=== PATIENT | female | born 1995 | race American Indian/Alaskan Native ===

== ENCOUNTER 2017-10-05 13:05 | Emergency (ER) | payer SELFPAY ==
[2017-10-05 13:35] VITALS: TEMP 98.8
[2017-10-05 14:14] LABS: BASO # 0.03 K/mm3 (0.0-2.0); BASO % 0.3 % (0.0-3.0); EOS # 0.1 (0.0-0.7); GRAN % 65.9 % (50.0-68.0); HEMOGLOBIN 10.4 g/dL (12.0-16.0); LYMPH # 2.9 (1.2-3.4); LYMPH % 27.2 % (22.0-35.0); MEAN CELL VOLUME 76.7 fl (80.0-105.0); MEAN CORPUSCULAR HEMOGLOBIN 23.5 pg (25.0-35.0); MEAN CORPUSCULAR HGB CONC 30.7 g/dl (31.0-37.0); MEAN PLATELET VOLUME 9.2 fl (7.0-11.0); MONO # 0.6 (0.1-0.6); MONO % 5.6 % (1.0-6.0); RBC 4.42 10^6/uL (3.5-6.1); RED CELL DISTRIBUTION WIDTH 14.8 % (11.5-14.5); WHITE BLOOD COUNT 10.6 10^3/ul (4.5-11.0)
[2017-10-05 14:17] LABS: PH,URINE 7.5 (4.7-8.0); URINE BILIRUBIN NEGATIVE (NEGATIVE); URINE BLOOD NEGATIVE (NEGATIVE); URINE GLUCOSE (UA) NEGATIVE (NEGATIVE); URINE LEUKOCYTE ESTERASE NEGATIVE Leu/uL (NEGATIVE); URINE NITRATE NEGATIVE (NEGATIVE); URINE PROTEIN TRACE mg/dL (<30 mg/dL); URINE UROBILINOGEN 0.2 E.U./dL (<1 E.U./dL)
[2017-10-05 14:19] LABS: URINE APPEARANCE SL CLOUDY (CLEAR); URINE COLOR YELLOW (YELLOW)
[2017-10-05 14:22] LABS: HCG,QUALITATIVE URINE NEGATIVE (NEGATIVE)
[2017-10-05 14:24] LABS: ALB/GLOB RATIO 1.3 (1.1-1.8); ALT/SGPT 26 U/L (7-56); AST/SGOT 20 U/L (14-36); BLOOD UREA NITROGEN 11 mg/dL (7-21); CALCIUM 9.5 mg/dL (8.4-10.5); GFR AFRICAN-AMERICAN > 60; GFR NON-AFRICAN AMERICAN > 60
[2017-10-05 14:27] LABS: URINE RBC NEGATIVE /hpf (0-2)
--- NOTE | 2017-10-05 14:45 | ED PDOC ---
Arrival/HPI - General Chief Complaint: Abdominal Pain Time Seen by Provider: 10/05/17 13:32 - History of Present Illness Narrative History of Present Illness (Text): 21yo female with LMP 1 week ago, presents to ER today with complaints of 2 weeks of dysuria and right lower abdominal pain, present since 4 days ago. She states the pain worsens with specific movements. She denies any fever, vomiting , diarrhea or appetite changes. No other complaints. States dysuria is persistent but improved. Denies back pain. Denies fevers or chills. Denies abnormal vaginal bleeding or discharge. No rash. No change in appetite. Pain not worse with meals. She states that she has had this pain intermittently at same spot in past but it "usually goes away after Tylenol". States pain has been persistent for past several days. Time/Duration: > week (2 weeks dysuria), < week (4 days abdominal pain) Symptom Onset: Gradual Past Medical History - Provider Review Nursing Documentation Reviewed: Yes - Reproductive Menopause: No - Psychiatric Hx Substance Use: Yes - Anesthesia Hx Anesthesia: No Family/Social History - Physician Review Nursing Documentation Reviewed: Yes Family/Social History: No Known Family HX Smoking Status: Current Some Days Smoker Hx Alcohol Use: No Hx Substance Use: Yes Substance used: marijuana Allergies/Home Meds Allergies/Adverse Reactions: Allergies No Known Allergies Allergy (Verified 10/05/17 13:35) Review of Systems - Review of Systems Constitutional: Fatigue. absent: Fevers Eyes: absent: Vision Changes, Eye Pain Respiratory: absent: SOB Cardiovascular: absent: Chest Pain Gastrointestinal: Abdominal Pain. absent: Stool Changes, Diarrhea, Nausea, Vomiting, Appetite Changes, Hematochezia, Hematemesis Genitourinary Female: Dysuria. absent: Frequency, Hematuria, Urine Output Changes, Vaginal Bleeding Musculoskeletal: absent: Back Pain, Neck Pain Skin: absent: Rash Neurological: absent: Headache, Dizziness, Focal Weakness Endocrine: absent: Polyuria Hemo/Lymphatic: absent: Easy Bleeding Physical Exam - Physical Exam Narrative Physical Exam (Text): Head: Atraumatic. Normocephalic. Eyes: PERRL. EOMI. Conjunctivae are not pale. ENT: Mucous membranes are moist and intact. Oropharynx is clear and symmetric. Neck: Supple. Full ROM. No JVD. No lymphadenopathy. Cardiovascular: Regular rate. Regular rhythm. No murmurs, rubs, or gallops. Distal pulses are 2+ and symmetric. Pulmonary/Chest: No evidence of respiratory distress. Clear to auscultation bilaterally. No wheezing, rales or rhonchi. Abdominal: Soft and non-distended. Focal right lower quadrant pain with no masses palpated, no inguinal masses or lesions. No rebound, guarding, or rigidity. No organomegaly. Good bowel sounds. No ruq pain. No suprapubic pain. No abdominal wall erythema or edema. Pelvic exam:performed with LOIS Goldman physical testing supervisor, no external lesions, no bleeding , no discharge, no cervical motion tenderness, no adnexal masses palpated Back: No CVA tenderness. Extremities: No edema. No cyanosis. No clubbing. Full range of motion in all extremities. No calf tenderness. Skin: Skin is warm and dry. No petechiae. No purpura. Neurological: Alert, awake, and oriented to person, place, time, and situation. Normal speech. Motor and sensory exam intact Psychiatric: Good eye contact. Normal interaction, affect, and behavior. Vital Signs Reviewed: Yes Vital Signs Temp Pulse Resp BP Pulse Ox 10/05/17 20:35 64 17 117/81 100 10/05/17 20:03 65 17 115/80 100 10/05/17 17:00 69 18 111/75 99 10/05/17 15:23 75 18 108/71 99 10/05/17 13:36 98.8 F 88 18 110/74 99 10/05/17 13:31 98.8 F 88 18 110/74 98 Temperature: Afebrile Appearance: Positive for: Non-Toxic, Uncomfortable Pain Distress: Mild Mental Status: Positive for: Alert and Oriented X 3 Medical Decision Making ED Course and Treatment: Impression: Patient is 21 yo female with dysuria for several weeks. Patient has right lower quadrant pain on examination. Differential Diagnosis included but are not limited to: UTI, ovarian cysts, appendicitis, gastritis Plan: -- Labs -- Urinalysis -- US Transvaginal -- Chlamydia/GC RNA, TMA -- Reassess and disposition Progress Notes: Patient with no palpable masses on examination, but persistent focal rlq pain. Afebrile. No cva tenderness. No rebound or guarding. Pelvic exam unremarkable. She has had prior history of STD, although no discharge or cervical motion tenderness on pelvic exam. UA reviewed. Cannot exclude UTI based on persistent dysuria. As rlq pain with gyne symptoms, transvaginal ultrasound ordered and was unremarkable. UA negative. On return from ultrasound, re-exam, there is persistent RLQ pain. CT abdomen ordered to evaluate for appendicitis. CT with no visualized appendix but no surrounding inflammatory changes. Pain improved on re-evaluation. Afebrile. WBC unremarkable. Not anorexic. No diarrhea. Based on improvement of pain as well as unremarkable ct, will d/c with Naproxen , Macrobid for possible UTI. I discussed with patient that cultures would be sent and results would take few days. 10/05/17 20:58 - Lab Interpretations Lab Results: 10/05/17 14:00 10/05/17 14:00 Lab Results 10/05/17 14:00: Urine Color Yellow, Urine Appearance Sl cloudy, Urine pH 7.5, Ur Specific [place] 1.020, Urine Protein Trace H, Urine Glucose (UA) Negative, Urine Ketones Negative, Urine Blood Negative, Urine Nitrate Negative, Urine Bilirubin Negative, Urine Urobilinogen 0.2, Ur Leukocyte Esterase Negative, Urine RBC Negative, Urine WBC 1 - 3, Ur Epithelial Cells 4 - 5, Urine Other Mucus, Urine HCG, Qual Negative 10/05/17 14:00: Sodium 140, Potassium 4.0, Chloride 106, Carbon Dioxide 26, Anion Gap 12, BUN 11, Creatinine 0.6 L, Est GFR ( Amer) > 60, Est GFR ( Non-Af Amer) > 60, Random Glucose 92, Calcium 9.5, Total Bilirubin 0.9, AST 20, ALT 26, Alkaline Phosphatase 63, Total Protein 7.0, Albumin 4.0, Globulin 3.0, Albumin/Globulin Ratio 1.3 10/05/17 14:00: WBC 10.6, RBC 4.42, Hgb 10.4 L, Hct 33.9 L, MCV 76.7 L, MCH 23.5 L, MCHC 30.7 L, RDW 14.8 H, Plt Count 341, MPV 9.2, Gran % 65.9, Lymph % ( Auto) 27.2, [place] % (Auto) 5.6, Eos % (Auto) 1.0 L, Baso % (Auto) 0.3, Gran # 7.00 H, Lymph # (Auto) 2.9, [place] # (Auto) 0.6, Eos # (Auto) 0.1, Baso # (Auto) 0.03 - RAD Interpretation Radiology Orders: 10/05/17 13:46 TRANSVAGINAL [US] Stat 10/05/17 16:24 ABD & PELVIS IV CONTRAST ONLY [CT] Stat - Medication Orders Current Medication Orders: Discontinued Medications Ketorolac Tromethamine (Toradol) 30 mg IVP ONCE ONE Stop: 10/05/17 18:52 Last Admin: 10/05/17 20:02 Dose: 30 mg MAR Pain Assessment Document 10/05/17 20:02 SF ([email or web address] Pain Reassessment Is this a pain reassessment? Yes Sleep Is patient sleeping during reassessment? No Presence of Pain Presence of Pain Yes Pain Scale Used Pain Scale Used Numeric IVP Administration Document 10/05/17 20:02 SF (Rec: 10/05/17 20:02 [email or web address] Charges for Administration # of IVP Administrations 1 - Scribe Statement The provider has reviewed the documentation as recorded by the [place] Provider Scribe Attestation: All medical record entries made by the Scribe were at my direction and personally dictated by me. I have reviewed the chart and agree that the record accurately reflects my personal performance of the history, physical exam, medical decision making, and the department course for this patient. I have also personally directed, reviewed, and agree with the discharge instructions and disposition. Disposition/Present on Arrival - Present on Arrival Any Indicators Present on Arrival: No History of DVT/PE: No History of Uncontrolled Diabetes: No Urinary Catheter: No History of Decub. Ulcer: No History Surgical Site Infection Following: None - Disposition Have Diagnosis and Disposition been Completed?: Yes Diagnosis: Abdominal pain, UTI (urinary tract infection) Disposition: HOME/ ROUTINE Disposition Time: 20:15 Patient Plan: Discharge Patient Problems: Current Active Problems Problem Status Onset Abdominal pain Acute UTI (urinary tract infection) Acute Condition: GOOD Discharge Instructions (ExitCare): Urinary Tract Infection in Women (ED), Abdominal Pain (ED) Additional Instructions: For any swelling, any redness, any increased pain or discomfort, any vomiting or diarrhea, any chest pain or shortness of breath, any rash, any abnormal vaginal discharge, any shakes/chills/fever, get rechecked. Follow-up with your training and development director. Take antibiotic as directed. Prescriptions: Nitrofurantoin Macrocrystals [Macrobid] 100 mg PO BID #14 cap Naproxen 250 mg PO BID PRN #10 tablet PRN Reason: Pain, Mild (1-3) Referrals: [facility] [place] - Follow up with primary Forms: [facility] [facility] ([place])
--- NOTE | 2017-10-05 15:45 | US ---
HISTORY: rlq abdominal pain COMPARISON: None available. TECHNIQUE: Transvaginal pelvic ultrasound FINDINGS: UTERUS: Measures 7.3 x 4.2 x 5.4 cm. Anteverted. ENDOMETRIUM: Measures 9 mm in diameter. CERVIX: No cervical abnormality identified. RIGHT OVARY: Measures 2.9 x 1.7 x 2.2 cm. Blood flow is demonstrated. LEFT OVARY: Measures 3.3 x 1.3 x 2.7 cm. Blood flow is demonstrated. FREE FLUID: No significant free fluid noted. OTHER FINDINGS: None. IMPRESSION: Unremarkable pelvic ultrasound as above.
[2017-10-05] MEDS ORDERED: Iohexol 350 MG/100 ML VIAL ONE (16:36)
--- NOTE | 2017-10-05 18:35 | CT ---
PROCEDURE: CT Abdomen and Pelvis with contrast HISTORY: rlq abdominal pain COMPARISON: None. TECHNIQUE: Contrast dose: 100 mL Omnipaque 350 Radiation dose: Total exam DLP = 206.65 mGy-cm. This CT exam was performed using one or more of the following dose reduction techniques: Automated exposure control, adjustment of the mA and/or kV according to patient size, and/or use of iterative reconstruction technique. FINDINGS: LOWER THORAX: Unremarkable. LIVER: Unremarkable. No gross lesion or ductal dilatation. GALLBLADDER AND BILE DUCTS: Unremarkable. PANCREAS: Unremarkable. No gross lesion or ductal dilatation. SPLEEN: Unremarkable. ADRENALS: Unremarkable. No mass. KIDNEYS AND URETERS: Unremarkable. No hydronephrosis. No solid mass. VASCULATURE: Unremarkable. No aortic aneurysm. BOWEL: Unremarkable. No obstruction. No gross mural thickening. Mild constipation is noted. APPENDIX: The appendix is not clearly visualized. No evidence of inflammatory changes at the right lower abdomen to suggest acute appendicitis. PERITONEUM: Unremarkable. No free fluid. No free air. LYMPH NODES: Unremarkable. No enlarged lymph nodes. BLADDER: Unremarkable. REPRODUCTIVE: The uterus is prominent in size. Small to moderate amount of fluid noted at the endometrial cavity. If clinically warranted further assessment by ultrasound is suggested. BONES: No acute fracture. OTHER FINDINGS: None. IMPRESSION: The appendix is not clearly visualized. No definite CT evidence of acute appendicitis. Dilated endometrial cavity contains fluid. If clinically warranted further assessment of the pelvis by ultrasound is suggested. No evidence of acute pathology in the upper abdomen.
[2017-10-05 20:04] VITALS: RESP 17; O2SAT 100
[2017-10-05 20:36] VITALS: BP 117/81; PULSE 64
== END 2017-10-05 20:35 | disposition home or self-care (01) ==
LOC: ED 13:05
DX: N39.0 Urinary tract infection, site not specified (principal); R10.31 Right lower quadrant pain
CPT/HCPCS: 74177; 76830; 80053; 81001; 84703; 85025; 87086; 87491; 87591; 96374; 99285; J1885; Q9967